=== PATIENT | male | born 1970 | race Caucasian/White ===

== ENCOUNTER 2024-02-15 09:37 | Inpatient (IN) | payer MEDICAID ==
[~2024-02-15] VITALS: Ht 170.2 cm; Wt 102.3 kg
[~2024-02-15 09:37] MED LIST: LEVO750T68 PO; NICO-687 TD; OXYC10TA47 PO
[2024-02-15 10:11] LABS: BASOPHILS # (AUTO) 0.1 X10'3 (0-0.2); BASOPHILS % (AUTO) 0.5 % (0-1); EOSINOPHILS # (AUTO) 0.2 X10'3 (0-0.9); EOSINOPHILS % (AUTO) 1.6 % (0-6); HEMOGLOBIN 12.7 g/dl (14.0-17.9); LYMPHOCYTES # (AUTO) 0.9 X10'3 (1.1-4.8); LYMPHOCYTES % (AUTO) 5.8 % (21-51); MEAN CORPUSCULAR HEMOGLOBIN 32.8 PG (27.0-31.0); MEAN CORPUSCULAR HGB CONC 34.3 g/dL (33.0-36.5); MEAN CORPUSCULAR VOLUME 95.7 FL (78-98); MEAN PLATELET VOLUME 7.7 FL (7.4-10.4); MONOCYTES # (AUTO) 1.5 X10'3 (0-0.9); MONOCYTES % (AUTO) 10.1 % (2-12); NEUTROPHILS # (AUTO) 12.4 X10'3 (1.8-7.7); PLATELET COUNT 274 X10'3 (140-440); RED BLOOD COUNT 3.87 X10'6 (4.70-6.10); WHITE BLOOD COUNT 15.2 X10'3 (4.5-11.0)
[2024-02-15 10:28] LABS: ALBUMIN 2.4 G/DL (3.4-5.0); ANION GAP 10 (8-16); BLOOD UREA NITROGEN 11 MG/DL (7-18); BUN/CREATININE RATIO 12.4 (10.0-20.0); CALCIUM 8.5 MG/DL (8.5-10.1); CHLORIDE 98 MMOL/L (99-107); CREATININE 0.89 MG/DL (0.60-1.10); GLUCOSE 99 MG/DL (70-104); SODIUM 132 MMOL/L (135-145); TOTAL CARBON DIOXIDE 24.2 MMOL/L (24-32); eCRCL 88 ML/MIN; eGFR 89 ML/MIN
[2024-02-15] MEDS ORDERED: vancomycin/NS 1 GM ADD-VANTAGE 250 ML IV ONE (12:30)
[2024-02-15] MEDS: CefTRIAXone 2gm/D5W 50ml BAG 50 ML IV ONE (12:39)
[2024-02-15] MEDS ORDERED: VANCOMYCIN 1GM 200ML H20 (PEG) 200 ML IV ONE (12:40)
[2024-02-15 13:04] LABS: C-REACTIVE PROTEIN 10.57 MG/DL (0.0-0.5)
[2024-02-15 13:18] LABS: BILIRUBIN,URINE NEGATIVE (Neg); CLARITY,URINE CLEAR (Clear); COLOR,URINE YELLOW (Yellow); GLUCOSE, URINE NEGATIVE (Neg); KETONES,URINE NEGATIVE (Neg); LEUKOCYTE ESTERASE ,URINE NEGATIVE (Neg); NITRITES, URINE NEGATIVE (Neg); OCCULT BLOOD,URINE MODERATE (Neg); PH,URINE 5.5 (4.8-8.0); PROTEIN,URINE NEGATIVE (Neg); UROBILINOGEN,URINE 0.2 E.U/dL (0.2-1.0)
[2024-02-15 13:24] LABS: URINE AMPHETAMINE SCREEN NEGATIVE (Neg); URINE BARBITUATE SCREEN NEGATIVE (Neg); URINE BENZODIAZEPINES SCREEN NEGATIVE (Neg); URINE CANNABINOID SCREEN POSITIVE (Neg); URINE COCAINE SCREEN NEGATIVE (Neg); URINE METHADONE SCREEN NEGATIVE (Neg); URINE OPIATE SCREEN NEGATIVE (Neg); URINE PHENCYCLIDINE SCREEN NEGATIVE (Neg)
[2024-02-15 13:27] LABS: UA COLLECTION TYPE VOIDED
[2024-02-15 13:29] LABS: BACTERIA,URINE NONE SEEN /HPF (Neg); RBC,URINE 0-2 /HPF (0-2); SQUAMOUS EPITHELIAL CELL,UR FEW /LPF (FEW); WBC,URINE 0-4 /HPF (0-4)
[2024-02-15] MEDS ORDERED: diphenhydrAMINE 25mg capsule PO PRN (13:55)
[2024-02-15] MEDS ORDERED: magnesium sulf-water 4G/100mL 100 ML IV PRN (13:55)
[2024-02-15] MEDS ORDERED: ondansetron 4mg rapidly disintigrating tab PO PRN (13:55)
[2024-02-15] MEDS ORDERED: potassium Cl 40MEQ/1/2NS 520ml 520 ML IV PRN (13:55)
[2024-02-15] MEDS ORDERED: magnesium hydroxide 30ml (MOM) UD suspension PO PRN (13:55)
[2024-02-15] MEDS ORDERED: potassium Cl 20 mEq SR tablet PO PRN ×2 (13:55)
[2024-02-15] MEDS ORDERED: magnesium sulf-water 2g/50mL 50 ML IV PRN (13:55)
[2024-02-15] MEDS ORDERED: mag hydrox/Alum hydrox/simeth 30ml oral suspension PO PRN (13:55)
[2024-02-15] MEDS ORDERED: bisacodyl 10mg suppository rectal RC PRN (13:55)
[2024-02-15] MEDS ORDERED: acetaminophen 650mg rectal suppository RC PRN (13:55)
[2024-02-15] MEDS ORDERED: ondansetron/PF 4mg/2ml inj IV PRN (13:55)
[2024-02-15] MEDS ORDERED: HYDROcodone/acetaminophen 5mg/325mg tablet PO PRN (13:55)
[2024-02-15] MEDS ORDERED: magnesium Cl slow-release 64mg tablet PO PRN (13:55)
[2024-02-15] MEDS ORDERED: acetaminophen 325mg tablet PO PRN ×2 (13:55)
[2024-02-15 13:56] LABS: ETHANOL 24 MG/DL (<10); MAGNESIUM 1.9 MG/DL (1.5-2.4)
[2024-02-15 14:10] LABS: HIV ANTIBODY 1&2 RAPID NON-REACTIVE (Neg)
[2024-02-15] MEDS ORDERED: VANCOMYCIN/WATER FOR INJ (PEG) 1.25GM/250 ML IVPB IV SCH (14:23)
[2024-02-15] MEDS: HYDROcodone/acetaminophen 10/325mg tab PO PRN (14:40)
[2024-02-15] MEDS: VANCOMYCIN 1GM 200ML H20 (PEG) 200 ML IV SCH (14:47)
[2024-02-15] MEDS: PERFLUTREN PROTEIN-A MICROSPHR (Optison) 0.22 MG/ML 3ML VIAL IV ONE (14:48)
[2024-02-15 14:49] LABS: HEMOGLOBIN A1C 5.1 % (4.5-6.2)
[2024-02-15] MEDS: normal saline 1000ml 1,000 ML IV SCH (14:51)
[2024-02-15] MEDS: nicotine 7mg patch - 24hr TD SCH (16:30)
[2024-02-15] MEDS: piperacillin/tazo 3.375gm/50ml 50 ML IV SCH (17:17)
[2024-02-15] MEDS ORDERED: haloperidol 5mg tablet PO PRN (18:30)
[2024-02-15] MEDS ORDERED: haloperidol lactate 5mg/ml inj IM PRN (18:30)
[2024-02-15] MEDS ORDERED: LORazepam 2 mg/ml vial IV PRN (18:30)
[2024-02-15 19:38] VITALS: BP 176/94; PULSE 101; RESP 18; TEMP 97.7; O2SAT 97
[2024-02-15] MEDS: K and/or MAG REPLACEMENT MC SCH (19:45)
[2024-02-15] MEDS: docusate sod 100mg capsule PO SCH (19:46)
[2024-02-15 20:00] VITALS: RESP 18; O2SAT 97
[2024-02-15] MEDS: lactobacillus rhamnosus 10,000 MMU CELLS/CAPSULE PO SCH (20:15)
[2024-02-15] MEDS: thiamine 100mg/ml 2ml inj. IV SCH (20:15)
[2024-02-15] MEDS: heparin, porcine 5000 units/ml vial SQ SCH (20:15)
[2024-02-15] MEDS: amLODIPine 5mg tablet PO ONE (21:04)
[2024-02-15 22:00] VITALS: BP 155/88; PULSE 84; RESP 17; TEMP 97.6; O2SAT 95
[2024-02-16 06:00] VITALS: BP 169/96; PULSE 86; RESP 14; TEMP 98.1; O2SAT 96
[2024-02-16 07:09] LABS: BASOPHILS % (AUTO) 0.4 % (0-1); EOSINOPHILS # (AUTO) 0.4 X10'3 (0-0.9); EOSINOPHILS % (AUTO) 4.3 % (0-6); HEMATOCRIT 34.4 % (42.0-52.0); HEMOGLOBIN 12.1 g/dl (14.0-17.9); LYMPHOCYTES # (AUTO) 0.6 X10'3 (1.1-4.8); LYMPHOCYTES % (AUTO) 6.9 % (21-51); MEAN CORPUSCULAR HEMOGLOBIN 33.4 PG (27.0-31.0); MEAN CORPUSCULAR HGB CONC 35.1 g/dL (33.0-36.5); MEAN CORPUSCULAR VOLUME 95.3 FL (78-98); MEAN PLATELET VOLUME 7.8 FL (7.4-10.4); MONOCYTES # (AUTO) 0.8 X10'3 (0-0.9); MONOCYTES % (AUTO) 8.9 % (2-12); NEUTROPHILS # (AUTO) 7.2 X10'3 (1.8-7.7); NEUTROPHILS % (AUTO) 79.5 % (42-75); PLATELET COUNT 214 X10'3 (140-440); RED BLOOD COUNT 3.61 X10'6 (4.70-6.10); RED CELL DISTRIBUTION WIDTH 14.1 % (11.5-14.5); WHITE BLOOD COUNT 9.1 X10'3 (4.5-11.0)
[2024-02-16 07:24] LABS: PROTHROMBIN TIME 10.9 SECONDS (9.0-12.0)
[2024-02-16 07:34] LABS: ALANINE AMINOTRANSFERASE 26 U/L (12-78); ALBUMIN/GLOBULIN RATIO 0.5 (1.1-1.5); ALKALINE PHOSPHATASE 70 IU/L (46-116); AMYLASE 61 U/L (25-115); ANION GAP 7 (8-16); ASPARTATE AMINO TRANSFERASE 31 U/L (10-37); BILIRUBIN,TOTAL 0.7 MG/DL (0.1-1.0); BLOOD UREA NITROGEN 9 MG/DL (7-18); BUN/CREATININE RATIO 9.4 (10.0-20.0); CALCIUM 7.8 MG/DL (8.5-10.1); CHLORIDE 102 MMOL/L (99-107); CHOL/HDL RATIO 2.2 (0.00-4.99); CHOLESTEROL 82 MG/DL (0-200); CREATININE 0.96 MG/DL (0.60-1.10); GLUCOSE 86 MG/DL (70-104); HDL CHOLESTEROL 38 MG/DL (35-60); LDL CHOLESTEROL 37 MG/DL (50-100); LIPASE 84 U/L (16-77); MAGNESIUM 1.7 MG/DL (1.5-2.4); PHOSPHORUS 3.9 MG/DL (2.3-4.5); POTASSIUM 4.1 MMOL/L (3.5-5.1); SODIUM 136 MMOL/L (135-145); TOTAL CARBON DIOXIDE 27.4 MMOL/L (24-32); TOTAL PROTEIN 6.3 G/DL (6.4-8.2); TRIGLYCERIDES 55 MG/DL (20-135); eCRCL 81 ML/MIN; eGFR 81 ML/MIN
[2024-02-16] MEDS: multivitamins, therapeutics tablet PO SCH (09:08)
[2024-02-16] MEDS: nicotine 21mg patch - 24 hr TD SCH (09:08)
[2024-02-16] MEDS: pantoprazole 40mg Tablet.DR PO SCH (09:08)
[2024-02-16] MEDS: folic acid 1mg/0.2ml inj IV SCH (09:09)
[2024-02-16] MEDS: lisinopril 10 MG tablet PO SCH (09:49)
[2024-02-16 10:00] VITALS: BP 164/90; PULSE 90; RESP 16; TEMP 98.6; O2SAT 97
[2024-02-16] MEDS: VANCOMYCIN LEVEL IV ONE (13:55)
[2024-02-16] MEDS: VANCOMYCIN/WATER FOR INJ (PEG) 1.25GM/250 ML IVPB IV SCH (15:00)
[2024-02-16 18:00] VITALS: BP 166/86; PULSE 93; RESP 16; TEMP 99; O2SAT 95
[2024-02-16 20:00] VITALS: RESP 16; O2SAT 95
[2024-02-16 20:31] VITALS: TEMP 98.4
[2024-02-16 22:00] VITALS: BP 163/89; PULSE 94; RESP 18; TEMP 98.7; O2SAT 98
[2024-02-17 07:43] LABS: BASOPHILS # (AUTO) 0.1 X10'3 (0-0.2); BASOPHILS % (AUTO) 0.6 % (0-1); EOSINOPHILS # (AUTO) 0.3 X10'3 (0-0.9); EOSINOPHILS % (AUTO) 3.4 % (0-6); HEMATOCRIT 34.3 % (42.0-52.0); LYMPHOCYTES % (AUTO) 9.9 % (21-51); MEAN CORPUSCULAR HEMOGLOBIN 33.4 PG (27.0-31.0); MEAN CORPUSCULAR HGB CONC 34.9 g/dL (33.0-36.5); MEAN CORPUSCULAR VOLUME 95.5 FL (78-98); MEAN PLATELET VOLUME 7.8 FL (7.4-10.4); MONOCYTES % (AUTO) 10.4 % (2-12); NEUTROPHILS # (AUTO) 7.4 X10'3 (1.8-7.7); NEUTROPHILS % (AUTO) 75.7 % (42-75); PLATELET COUNT 247 X10'3 (140-440); RED BLOOD COUNT 3.59 X10'6 (4.70-6.10); WHITE BLOOD COUNT 9.7 X10'3 (4.5-11.0)
[2024-02-17 07:54] LABS: PROTHROMBIN TIME 10.8 SECONDS (9.0-12.0)
[2024-02-17] MEDS: mupirocin 2% ointment 22GM TP SCH (08:00)
[2024-02-17] MEDS: CHLORHEXIDINE GLUCONATE 4% 15 ML topical sol TP SCH (08:00)
[2024-02-17 08:25] LABS: ALANINE AMINOTRANSFERASE 169 U/L (12-78); ALBUMIN 2.2 G/DL (3.4-5.0); ALBUMIN/GLOBULIN RATIO 0.5 (1.1-1.5); ALKALINE PHOSPHATASE 194 IU/L (46-116); AMYLASE 54 U/L (25-115); ANION GAP 6 (8-16); ASPARTATE AMINO TRANSFERASE 192 U/L (10-37); BILIRUBIN,TOTAL 1.1 MG/DL (0.1-1.0); BLOOD UREA NITROGEN 7 MG/DL (7-18); BUN/CREATININE RATIO 7.6 (10.0-20.0); CHLORIDE 102 MMOL/L (99-107); CREATININE 0.92 MG/DL (0.60-1.10); GLUCOSE 89 MG/DL (70-104); LIPASE 109 U/L (16-77); MAGNESIUM 1.6 MG/DL (1.5-2.4); PHOSPHORUS 3.4 MG/DL (2.3-4.5); POTASSIUM 4.2 MMOL/L (3.5-5.1); SODIUM 135 MMOL/L (135-145); TOTAL CARBON DIOXIDE 27.3 MMOL/L (24-32); TOTAL PROTEIN 6.8 G/DL (6.4-8.2); eCRCL 85 ML/MIN; eGFR 85 ML/MIN
[2024-02-17 10:00] VITALS: BP 167/91; PULSE 84; RESP 14; TEMP 98.1; O2SAT 98
[2024-02-17] MEDS: levoFLOXACIN-Levaquin 750MG/D5 150 ML IV SCH (13:07)
[2024-02-17] MEDS: lisinopril 10 MG tablet PO ONE (15:11)
[2024-02-17] MEDS: amLODIPine 5mg tablet PO ONE (15:12)
[2024-02-17 18:00] VITALS: BP 150/88; PULSE 98; RESP 18; TEMP 98.4; O2SAT 96
[2024-02-17] MEDS ORDERED: LORazepam 1 MG tablet PO PRN (18:30)
[2024-02-17] MEDS ORDERED: LORazepam 2 mg/ml vial IV PRN (18:30)
[2024-02-17 20:29] VITALS: BP 148/82; PULSE 86; RESP 18; TEMP 99; O2SAT 96
[2024-02-17 22:00] VITALS: BP 149/87; PULSE 81; RESP 18; TEMP 98; O2SAT 96
[2024-02-17] MEDS: VANCOMYCIN LEVEL IV ONE (23:24)
[2024-02-18] VITALS (18 sets, daily range): BP systolic 98–174; BP diastolic 58–108; PULSE 83–116; RESP 14–27; TEMP 97.3–98.3; O2SAT 92–100
[2024-02-18 05:10] LABS: CHLAMYDIA TRACHOMATIS, NAA Negative (Negative)
[2024-02-18] MEDS: lisinopril 10 MG tablet PO SCH (07:16)
[2024-02-18 07:58] LABS: BASOPHILS # (AUTO) 0.1 X10'3 (0-0.2); BASOPHILS % (AUTO) 0.9 % (0-1); EOSINOPHILS # (AUTO) 0.2 X10'3 (0-0.9); EOSINOPHILS % (AUTO) 2.7 % (0-6); HEMATOCRIT 33.5 % (42.0-52.0); HEMOGLOBIN 11.6 g/dl (14.0-17.9); LYMPHOCYTES # (AUTO) 0.6 X10'3 (1.1-4.8); LYMPHOCYTES % (AUTO) 7.3 % (21-51); MEAN CORPUSCULAR HEMOGLOBIN 33.4 PG (27.0-31.0); MEAN CORPUSCULAR HGB CONC 34.4 g/dL (33.0-36.5); MEAN CORPUSCULAR VOLUME 96.8 FL (78-98); MONOCYTES # (AUTO) 0.9 X10'3 (0-0.9); MONOCYTES % (AUTO) 10.7 % (2-12); NEUTROPHILS # (AUTO) 6.3 X10'3 (1.8-7.7); NEUTROPHILS % (AUTO) 78.4 % (42-75); PLATELET COUNT 247 X10'3 (140-440); RED BLOOD COUNT 3.46 X10'6 (4.70-6.10); RED CELL DISTRIBUTION WIDTH 14.1 % (11.5-14.5)
[2024-02-18 08:13] LABS: INR 1.1 INR; PROTHROMBIN TIME 11.2 SECONDS (9.0-12.0)
[2024-02-18] MEDS ORDERED: fentaNYL/PF 50MCG/1 ML 2ML syringe ONE (08:21)
[2024-02-18] MEDS ORDERED: MIDAZolam 1mg/ml 10ml vial ONE (08:21)
[2024-02-18 08:33] LABS: ALANINE AMINOTRANSFERASE 138 U/L (12-78); ALBUMIN/GLOBULIN RATIO 0.4 (1.1-1.5); ALKALINE PHOSPHATASE 187 IU/L (46-116); AMYLASE 44 U/L (25-115); ANION GAP 8 (8-16); ASPARTATE AMINO TRANSFERASE 96 U/L (10-37); BILIRUBIN,TOTAL 0.6 MG/DL (0.1-1.0); BLOOD UREA NITROGEN 6 MG/DL (7-18); BUN/CREATININE RATIO 6.2 (10.0-20.0); CALCIUM 8.3 MG/DL (8.5-10.1); CHLORIDE 104 MMOL/L (99-107); CREATININE 0.97 MG/DL (0.60-1.10); FREE T4 (FREE THYROXINE) 1.16 NG/DL (0.73-1.40); GLUCOSE 84 MG/DL (70-104); LIPASE 52 U/L (16-77); MAGNESIUM 1.8 MG/DL (1.5-2.4); PHOSPHORUS 3.4 MG/DL (2.3-4.5); POTASSIUM 4.7 MMOL/L (3.5-5.1); SODIUM 139 MMOL/L (135-145); TOTAL CARBON DIOXIDE 27.4 MMOL/L (24-32); TOTAL PROTEIN 6.7 G/DL (6.4-8.2); eCRCL 80 ML/MIN; eGFR 80 ML/MIN
[2024-02-18 08:39] LABS: C DIFF ANTIGEN NEGATIVE (NEGATIVE); C DIFF SPECIMEN=DIARRHEA? ACCEPTABLE; C DIFFICILE TOXINS A&B NEGATIVE (Neg)
[2024-02-18] MEDS: VANCOMYCIN 1.75GM/WATER FOR INJ (PEG) 350 ML IVPB IV SCH (19:33)
[2024-02-19] VITALS (7 sets, daily range): BP systolic 147–165; BP diastolic 79–98; PULSE 81–86; RESP 16–20; TEMP 98–98.9; O2SAT 96–97
[2024-02-19 06:18] LABS: PROTHROMBIN TIME 10.6 SECONDS (9.0-12.0)
[2024-02-19 06:22] LABS: ALANINE AMINOTRANSFERASE 100 U/L (12-78); ALBUMIN 1.9 G/DL (3.4-5.0); ALBUMIN/GLOBULIN RATIO 0.4 (1.1-1.5); ALKALINE PHOSPHATASE 249 IU/L (46-116); AMYLASE 49 U/L (25-115); ANION GAP 6 (8-16); ASPARTATE AMINO TRANSFERASE 51 U/L (10-37); BILIRUBIN,TOTAL 0.4 MG/DL (0.1-1.0); BLOOD UREA NITROGEN 7 MG/DL (7-18); CALCIUM 8.1 MG/DL (8.5-10.1); CHLORIDE 106 MMOL/L (99-107); CREATININE 0.88 MG/DL (0.60-1.10); GLUCOSE 93 MG/DL (70-104); LIPASE 46 U/L (16-77); MAGNESIUM 1.7 MG/DL (1.5-2.4); PHOSPHORUS 3.9 MG/DL (2.3-4.5); POTASSIUM 4.1 MMOL/L (3.5-5.1); SODIUM 140 MMOL/L (135-145); TOTAL CARBON DIOXIDE 28.2 MMOL/L (24-32); TOTAL PROTEIN 6.5 G/DL (6.4-8.2); eCRCL 89 ML/MIN; eGFR 90 ML/MIN
[2024-02-19 06:30] LABS: BASOPHILS % (AUTO) 0.6 % (0-1); EOSINOPHILS # (AUTO) 0.3 X10'3 (0-0.9); EOSINOPHILS % (AUTO) 3.6 % (0-6); HEMATOCRIT 33.5 % (42.0-52.0); HEMOGLOBIN 11.5 g/dl (14.0-17.9); LYMPHOCYTES # (AUTO) 0.9 X10'3 (1.1-4.8); LYMPHOCYTES % (AUTO) 11.8 % (21-51); MEAN CORPUSCULAR HEMOGLOBIN 33.1 PG (27.0-31.0); MEAN CORPUSCULAR HGB CONC 34.4 g/dL (33.0-36.5); MEAN CORPUSCULAR VOLUME 96.4 FL (78-98); MONOCYTES # (AUTO) 0.8 X10'3 (0-0.9); MONOCYTES % (AUTO) 9.8 % (2-12); NEUTROPHILS # (AUTO) 5.7 X10'3 (1.8-7.7); NEUTROPHILS % (AUTO) 74.2 % (42-75); PLATELET COUNT 294 X10'3 (140-440); RED BLOOD COUNT 3.47 X10'6 (4.70-6.10); RED CELL DISTRIBUTION WIDTH 13.9 % (11.5-14.5); WHITE BLOOD COUNT 7.7 X10'3 (4.5-11.0)
[2024-02-19] MEDS: morphine 2 MG/ML inj. syringe IV PRN (09:39)
[2024-02-19] MEDS: thiamine 100mg tablet PO SCH (12:19)
[2024-02-19] MEDS ORDERED: morphine 2 MG/ML inj. syringe IV PRN (14:25)
[2024-02-19] MEDS: ceFAZolin 2gm in dextrose, iso 50 ML IV SCH (15:12)
[2024-02-19] MEDS: JUVEN Shake w/Arg/Glut/Ca2+Bmb (Juven 19.3gm) pkt 240ml PO SCH (17:30)
[2024-02-19] MEDS ORDERED: LORazepam 1 MG tablet PO PRN (18:30)
[2024-02-19] MEDS ORDERED: LORazepam 2 mg/ml vial IV PRN (18:30)
[2024-02-19] MEDS: ascorbic acid 500mg tablet PO SCH (19:58)
[2024-02-20] VITALS (9 sets, daily range): BP systolic 135–160; BP diastolic 8–89; PULSE 12–100; RESP 14–18; TEMP 97.4–98.4; O2SAT 95–97
[2024-02-20 05:42] LABS: HBSAG SCREEN Negative (Negative); HEP A AB, IGM Negative (Negative); HEP B CORE AB, IGM Negative (Negative); HEP B SURF AB Non Reactive (.); HEPATITIS C VIRUS ANTIBODY Non Reactive (Non Reactive)
[2024-02-20 05:57] LABS: BASOPHILS # (AUTO) 0.1 X10'3 (0-0.2); BASOPHILS % (AUTO) 1.1 % (0-1); EOSINOPHILS # (AUTO) 0.3 X10'3 (0-0.9); HEMATOCRIT 34.9 % (42.0-52.0); LYMPHOCYTES # (AUTO) 0.9 X10'3 (1.1-4.8); LYMPHOCYTES % (AUTO) 12.1 % (21-51); MEAN CORPUSCULAR HEMOGLOBIN 32.9 PG (27.0-31.0); MEAN CORPUSCULAR HGB CONC 34.2 g/dL (33.0-36.5); MEAN CORPUSCULAR VOLUME 96.3 FL (78-98); MEAN PLATELET VOLUME 7.6 FL (7.4-10.4); MONOCYTES # (AUTO) 0.8 X10'3 (0-0.9); MONOCYTES % (AUTO) 11.5 % (2-12); NEUTROPHILS % (AUTO) 71.3 % (42-75); PLATELET COUNT 301 X10'3 (140-440); RED BLOOD COUNT 3.63 X10'6 (4.70-6.10)
[2024-02-20 06:10] LABS: PROTHROMBIN TIME 10.5 SECONDS (9.0-12.0)
[2024-02-20 06:12] LABS: ALANINE AMINOTRANSFERASE 74 U/L (12-78); ALBUMIN 2.2 G/DL (3.4-5.0); ALBUMIN/GLOBULIN RATIO 0.4 (1.1-1.5); ALKALINE PHOSPHATASE 219 IU/L (46-116); AMYLASE 44 U/L (25-115); ANION GAP 4 (8-16); ASPARTATE AMINO TRANSFERASE 28 U/L (10-37); BILIRUBIN,TOTAL 0.4 MG/DL (0.1-1.0); BLOOD UREA NITROGEN 7 MG/DL (7-18); BUN/CREATININE RATIO 7.4 (10.0-20.0); C-REACTIVE PROTEIN 2.62 MG/DL (0.0-0.5); CALCIUM 8.7 MG/DL (8.5-10.1); CHLORIDE 105 MMOL/L (99-107); CREATININE 0.94 MG/DL (0.60-1.10); GLUCOSE 94 MG/DL (70-104); LIPASE 36 U/L (16-77); MAGNESIUM 1.8 MG/DL (1.5-2.4); PHOSPHORUS 4.1 MG/DL (2.3-4.5); SODIUM 139 MMOL/L (135-145); TOTAL CARBON DIOXIDE 29.9 MMOL/L (24-32); TOTAL PROTEIN 7.1 G/DL (6.4-8.2); eCRCL 83 ML/MIN; eGFR 83 ML/MIN
[2024-02-20] MEDS ORDERED: VANCOMYCIN LEVEL IV ONE (06:30)
[2024-02-20] MEDS: normal saline 1000ml 1,000 ML IV SCH (17:48)
[2024-02-21 06:00] VITALS: BP 150/95; PULSE 78; RESP 16; TEMP 96.7; O2SAT 100
[2024-02-21 08:00] VITALS: RESP 16; O2SAT 100
[2024-02-21 09:13] LABS: BASOPHILS % (AUTO) 0.6 % (0-1); EOSINOPHILS # (AUTO) 0.2 X10'3 (0-0.9); EOSINOPHILS % (AUTO) 3.4 % (0-6); HEMATOCRIT 35.7 % (42.0-52.0); HEMOGLOBIN 12.1 g/dl (14.0-17.9); LYMPHOCYTES # (AUTO) 0.6 X10'3 (1.1-4.8); MEAN CORPUSCULAR HEMOGLOBIN 32.4 PG (27.0-31.0); MEAN CORPUSCULAR VOLUME 95.4 FL (78-98); MEAN PLATELET VOLUME 7.7 FL (7.4-10.4); MONOCYTES # (AUTO) 0.5 X10'3 (0-0.9); MONOCYTES % (AUTO) 8.7 % (2-12); NEUTROPHILS # (AUTO) 4.9 X10'3 (1.8-7.7); NEUTROPHILS % (AUTO) 77.3 % (42-75); PLATELET COUNT 282 X10'3 (140-440); RED BLOOD COUNT 3.74 X10'6 (4.70-6.10); RED CELL DISTRIBUTION WIDTH 14.2 % (11.5-14.5); WHITE BLOOD COUNT 6.3 X10'3 (4.5-11.0)
[2024-02-21 09:30] LABS: ALANINE AMINOTRANSFERASE 50 U/L (12-78); ALBUMIN 2.2 G/DL (3.4-5.0); ALBUMIN/GLOBULIN RATIO 0.5 (1.1-1.5); ALKALINE PHOSPHATASE 167 IU/L (46-116); ANION GAP 7 (8-16); ASPARTATE AMINO TRANSFERASE 17 U/L (10-37); BILIRUBIN,TOTAL 0.4 MG/DL (0.1-1.0); BLOOD UREA NITROGEN 11 MG/DL (7-18); BUN/CREATININE RATIO 11.6 (10.0-20.0); CALCIUM 8.6 MG/DL (8.5-10.1); CHLORIDE 103 MMOL/L (99-107); CREATININE 0.95 MG/DL (0.60-1.10); GLUCOSE 141 MG/DL (70-104); POTASSIUM 3.6 MMOL/L (3.5-5.1); SODIUM 137 MMOL/L (135-145); TOTAL CARBON DIOXIDE 27.1 MMOL/L (24-32); TOTAL PROTEIN 6.9 G/DL (6.4-8.2); eCRCL 82 ML/MIN; eGFR 82 ML/MIN
[2024-02-21 10:00] VITALS: BP 136/70; PULSE 94; RESP 16; TEMP 98.7; O2SAT 97
[2024-02-21] MEDS ORDERED: thiamine tablet PO (13:20)
[2024-02-21] MEDS ORDERED: MULT-25 PO (13:20)
[2024-02-21] MEDS ORDERED: LACT1CAP26 PO (13:20)
[2024-02-21] MEDS ORDERED: VITC500T PO (13:20)
[2024-02-21] MEDS ORDERED: LISI10TA27 PO (13:20)
[2024-02-21] MEDS ORDERED: PANT40TA54 PO (13:20)
[2024-02-21] MEDS ORDERED: NIFE10CA57 PO (13:20)
[2024-02-21] MEDS ORDERED: LINE600T14 PO (13:20)
[2024-02-21 14:30] VITALS: RESP 14; O2SAT 96
== END 2024-02-21 14:30 | disposition home or self-care (01) | DRG 710 ==
LOC: ER 09:37 → ED HOLD 12:37 → UNDOADMIN 12:37 → ED HOLD 13:56 → ORTHO 4S 19:20 → ED HOLD 19:20
PROVIDERS: ADMIT Family Medicine; ATTEND Family Medicine
PROC: 0KBS0ZZ Excision of Right Lower Leg Muscle, Open Approach (ICD-10-PCS; principal; 2024-02-18 08:19)
DX: A41.01 Sepsis due to Methicillin susceptible Staphylococcus aureus (principal); J18.9 Pneumonia, unspecified organism; E87.8 Other disorders of electrolyte and fluid balance, not elsewhere classified; E87.1 Hypo-osmolality and hyponatremia; L03.115 Cellulitis of right lower limb; L97.818 Non-pressure chronic ulcer of other part of right lower leg with other specified severity; Z20.822 Contact with and (suspected) exposure to COVID-19; F17.210 Nicotine dependence, cigarettes, uncomplicated; F10.10 Alcohol abuse, uncomplicated; F19.10 Other psychoactive substance abuse, uncomplicated; I10 Essential (primary) hypertension; N28.1 Cyst of kidney, acquired; R74.01 Elevation of levels of liver transaminase levels; L98.8 Other specified disorders of the skin and subcutaneous tissue; Z85.71 Personal history of Hodgkin lymphoma; Z59.00 Homelessness unspecified
CPT/HCPCS: 36415; 71045; 73560; 74176; 74181; 80048; 80053; 80061; 80202; 80305; 80320; 81001; 82150; 82948; 83036; 83605; 83690; 83735; 84100; 84145; 84439; 84443; 85025; 85610; 85651; 86140; 86592; 86703; 86705; 86706; 86709; 86803; 87040; 87070; 87075; 87077; 87081; 87186; 87324; 87340; 87449; 87491; 87502; 87503; 87522; 87811; 93005; 93306; 99285; A4615; A4618; A6196; A6223; A6253; A6258; A6446; A6449; A7000; G0378; J0690; J0696; J1644; J1956; J2250; J2270; J2543; J3010; J3372; J3411; J3490; J7030

== ENCOUNTER 2025-02-19 10:18 | Emergency (ER) | payer MEDICAID ==
[~2025-02-19] VITALS: Ht 170.2 cm; Wt 90.9 kg
[~2025-02-19 10:18] MED LIST changes: +LACT1CAP26 PO; -LEVO750T68 PO; +LINE600T14 PO; +LISI10TA27 PO; +MULT-25 PO; +NIFE10CA57 PO; -OXYC10TA47 PO; +PANT40TA54 PO; +VITC500T PO; +thiamine tablet PO
[2025-02-19 10:33] VITALS: BP 142/94; PULSE 91; RESP 16; O2SAT 99
--- NOTE | 2025-02-19 11:33 | Physician Documentation ---
History of Present Illness ~ Chief Complaint: Wound Stated Complaint: BED BUGS Time Seen by MD: 10:21 Primary Medical Doctor: NONE HPI This is a 54-year-old male who presents with wounds to bilateral lower extremities and lower back and buttocks present for the past three weeks after staying at a location he believes to have bedbugs, within the last week patient reports the wounds to his legs have progressively worsened and have gone from being scabbed wounds to open wounds with purulence, patient reports subjective fever intermittently during the past week. Patient reports no other acute symptoms or concerns. Tetanus within 5 years?: No Medication Reconciliation Allergies: Coded Allergies: No Known Allergies (Unverified , 02/15/24) Scheduled Ascorbic Acid* (Vitamin C*), 500 MG PO BID@0830,1730 Ibuprofen* (Motrin*), 1 TAB PO Q8H Lactobacillus Rhamnosus (Culturelle), 1 CAP PO BID Linezolid (Linezolid), 1 TAB PO Q12H Lisinopril (Lisinopril), 20 MG PO DAILY Multivitamin with Folic Acid (Thera Tablet), 1 EACH PO Q24H Nicotine 21 MG Patch* (Habitrol 21 MG Patch*), 1 PATCH TD DAILY Nifedipine (Nifedipine), 30 MG PO DAILY Pantoprazole Sodium (Pantoprazole Sodium), 40 MG PO BKF Sulfamethoxazole/Trimethoprim (Bactrim Ds Tablet), 1 TAB PO Q12H [thiamine tablet], 100 MG PO DAILY Scheduled PRN Acetaminophen (Acetaminophen), 1 TAB PO Q4HPRN PRN for pain or fever Past Medical History Past Medical History: No Pertinent History Past Surgical History: orthopedic surgeries Patient History: Hodgkin's lymphoma Brother Alcohol Use: Occasionally Drug Use: none Lives In: Home Review of Systems ROS As stated above in the HPI, otherwise all systems are reviewed and negative. Physical Exam Vital Signs: Temperature: 99.2, Source: Temporal, Heart Rate: 91, Respiratory Rate: 16, BP: 142/94, Pulse Oximetry: 99, Weight: 90.910 Oxygen Flow Rate: 0 Physical Exam VITALS: Reviewed and as above. GENERAL: Alert, nontoxic appearing, no apparent distress. RESPIRATORY: No increased work of breathing, no respiratory distress, speaking in full clear sentences SKIN: Many scabbed and open wounds to lower back and bilateral buttocks with minimal surrounding erythema and no induration or fluctuance, many scabbed woun ds to bilateral lower extremities, 2 cm x 3 cm shallow open wound to posterior aspect of left calf with minimal purulence, 2 cm by 3 cm shallow open wound to medial aspect of left lower calf, 3 cm x 4 cm shallow open wound to lateral aspect of left lower calf with minimal purulence, no fluctuance or induration Progress Results/Orders Results/Orders Orders - LESA POTTER Wound Care Orders (02/19/25 ) Completed Orders - LESA POTTER Sulfamethox/Trimetho. Ds Tab (Septra Ds (02/19/25 11:40) Acetaminophen 325mg Tablet (Tylenol Tabl (02/19/25 11:40) Vital Signs 02/19/25 02/19/25 10:33 11:47 Temp 99.2 99.2 Pulse 91 Resp 16 B/P (MAP) 142/94 Pulse Ox 99 O2 Flow Rate 0 Medical Decision Making Additional information obtaine: N/A Findings This is a 54-year-old male who presents with wounds to lower back and bilateral lower extremities, open wounds to lower extremities are consistent wound infection without abscess or cellulitis, reassuring the wounds are shallow and patient is currently afebrile, additionally reassuring patient is not diabetic, other wounds appears scabbed and healing without complication, given patient is report of wounds appearing all at the same time after staying at a location with possible bedbugs I suspect wounds are secondary to bedbug bites. Patient is otherwise well-appearing hemodynamically stable and appropriate for outpatient follow up we will be discharged on course of oral antibiotics. Patient provided home care instructions return to care precautions and follow up instructions which he verbalized understanding of. Differential Dx:Considerations: Include: Abscess, Cellulitis, Dressing change, Healing wound, Other Departure Time of Disposition: 11:33 Disposition: 01 HOME / SELF CARE / HOMELESS Impression: Primary Impression: Wound infection Condition: Improved Discharge Instructions: How to Change Your Wound Dressing Additional Instructions: Please take antibiotics as prescribed, keep your open wounds clean dry and covered. Please follow up with your primary care provider or [facility] in the next few days. Please return to the emergency department for any new or worsening concerning symptoms including but not limited to if you develop a fever over 100.4 that does not lower with ibuprofen or Tylenol. You may use the prescribed ibuprofen and Tylenol as needed for pain or fever as directed by the prescribed directions. Referrals: NO PRIMARY CARE PROVIDER (PCP) Prescriptions Sulfamethoxazole/Trimethoprim (Bactrim Ds Tablet) 800 Mg-160 Mg Tablet 1 TAB PO Q12H for 7 Days, #14 TAB Prov: LESA POTTER 02/19/25 Acetaminophen (Acetaminophen) 325 Mg Tablet 1 TAB PO Q4HPRN PRN for pain or fever for 24 Days, #100 TAB Prov: LESA POTTER 02/19/25 Ibuprofen* (Motrin*) 400 Mg Tablet 1 TAB PO Q8H for pain or fever for 20 Days, #60 TAB Prov: LESA POTTERP 02/19/25 Education Educated: Patient Educated regarding: diagnosis, treatment, prognosis, need for follow up Signature Scribe Signature: No scribe Attestation: The note accurately reflects work and decisions made by me.JONNA Borges 02/20/25 10:12 LESA POTTER Feb 19, 2025 11:33
[2025-02-19] MEDS ORDERED: ACET325T59 PO (11:35)
[2025-02-19] MEDS ORDERED: IBUP-1984 PO (11:35)
[2025-02-19] MEDS ORDERED: SULF1TAB49 PO (11:38)
[2025-02-19] MEDS ORDERED: sulfamethoxazole/trimethoprim DS (800/160mg) tablet PO ONE (11:40)
[2025-02-19 11:47] VITALS: TEMP 99.2
== END 2025-02-19 11:49 | disposition home or self-care (01) ==
LOC: ER 10:19
DX: S81.801A Unspecified open wound, right lower leg, initial encounter (principal); S81.802A Unspecified open wound, left lower leg, initial encounter; Z79.899 Other long term (current) drug therapy; Z72.89 Other problems related to lifestyle; Z98.890 Other specified postprocedural states; X58.XXXA Exposure to other specified factors, initial encounter; Y93.89 Activity, other specified; Y92.89 Other specified places as the place of occurrence of the external cause; Y99.8 Other external cause status
CPT/HCPCS: 99283